=== PATIENT | female | born 1970 | race Caucasian/White ===

== ENCOUNTER 2018-06-22 08:57 | Emergency (ER) | payer OTHER ==
--- NOTE | 2018-06-22 09:47 | ERPHSYRPT ---
- History of Present Illness Time Seen by Provider: 06/22/18 09:28 Source: patient, family Exam Limitations: no limitations Patient Subjective Stated Complaint: Patient stated pain in calf that moved to the groin. Patient then felt pain in entire leg. Patient then was sick to stomach and felt like passing out. Triage Nursing Assessment: Patient brought to ER per EMS via ambulance. Patient A+O X 3. Patient complains of pain to left leg calf area 2/10 pain. Patient also complains of pain in groin area 210 pain. Patient's left extremity noted to be cool. Pedal pulse positive. Physician History: 48 y/o white female presents with sudden onset of sharp, burning pain left inner calf that radiated and localized into left groin area. occurred this am. the calf pain resolved and pain in left groin remains but less intense. pt felt as though she was going to pass out. pt denies soa, denies cp and denies abd pain. pt has never had in the past. pt denies trauma and denies h/o clotting d/ o. pt is a smoker. pt currently on her menstrual period Method of Injury: other (no injury) Occurred: this morning Quality: burning, sharpness, other (now resolved) Severity of Pain-Max: moderate Severity of Pain-Current: mild Lower Extremities Pain: leg: left Modifying Factors: Improves With: other (resolved on its own with time) Associated Symptoms: dizzy, other (sweaty and nauseated) Allergies/Adverse Reactions: Penicillins Allergy (Mild, Verified 06/22/18 09:14) Home Medications: Nicotine 21 mg [Nicoderm CQ 21 MG] 21 mg TOP DAILY 06/22/18 [History] Hx Tetanus, Diphtheria Vaccination/Date Given: No Hx Influenza Vaccination/Date Given: No Hx Pneumococcal Vaccination/Date Given: No Immunizations Up to Date: Yes - Review of Systems Constitutional: Other (sweats) Eyes: No Symptoms, No Eye Pain Ears, Nose, & Throat: No Symptoms, No Ear Pain Respiratory: No Symptoms, No Cough, No Dyspnea, No Stridor, No Wheezing Cardiac: No Symptoms, No Chest Pain, No Syncope Abdominal/Gastrointestinal: Nausea, No Abdominal Pain, No Vomiting, No Diarrhea Genitourinary Symptoms: No Symptoms, No Dysuria, No Frequency, No Hematuria, No Incontinence Musculoskeletal: Other (left leg pain, left groin pain) Skin: No Symptoms Neurological: Dizziness, No Paralysis, No Sensory Changes, No Speech Changes Psychological: No Symptoms, No Alcohol Abuse, No Drug Abuse Endocrine: No Symptoms Hematologic/Lymphatic: No Symptoms, No Blood Clots, No Easy Bleeding, No Adenopathy Immunological/Allergic: No Symptoms All Other Systems: Reviewed and Negative - Past Medical History Pertinent Past Medical History: Yes Neurological History: No Pertinent History ENT History: No Pertinent History Cardiac History: No Pertinent History Respiratory History: No Pertinent History Endocrine Medical History: No Pertinent History Musculoskeletal History: No Pertinent History GI Medical History: No Pertinent History History: No Pertinent History Psycho-Social History: No Pertinent History Female Reproductive Disorders: No Pertinent History - Past Surgical History Past Surgical History: Yes Neuro Surgical History: No Pertinent History Cardiac: No Pertinent History Respiratory: No Pertinent History Gastrointestinal: No Pertinent History Genitourinary: No Pertinent History Musculoskeletal: No Pertinent History Female Surgical History: No Pertinent History 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 - Social History Smoking Status: Current every day smoker How long have you smoked: 30 years Exposure to second hand smoke: Yes Drug Use: none Patient Lives Alone: No - Female History Hx Last Menstrual Period: currently on Hx Now: No - Nursing Vital Signs Nursing Vital Signs: Initial Vital Signs Temperature 97.6 F 06/22/18 08:59 Blood Pressure 141/63 06/22/18 08:59 Pain Scale Pain Intensity 2 - Physical Exam General Appearance: no apparent distress, alert, anxiety Eyes, Ears, Nose, Throat Exam: normal ENT inspection, TMs normal Neck Exam: normal inspection, non-tender, supple, full range of motion Cardiovascular/Respiratory Exam: chest non-tender, normal breath sounds, regular rate/rhythm, heart sounds normal, no respiratory distress, No tachycardia, No irregularly irregular, No rhonchi, No accessory muscle use, No wheezing Gastrointestinal/Abdominal Exam: non-tender, soft, no organomegaly, no hernia, No guarding, No tenderness Back Exam: normal inspection, normal range of motion, No CVA tenderness, No vertebral tenderness Hips Exam: bilateral: non-tender, normal inspection, normal range of motion Legs Exam: bilateral leg: non-tender, normal inspection, normal range of motion , no evidence of injury Knees Exam: bilateral knee: non-tender, normal inspection, normal range of motion, no evidence of injury Ankle Exam: bilateral ankle: non-tender, normal inspection, normal range of motion, no evidence of injury Foot Exam: bilateral foot: non-tender, normal inspection, normal range of motion , no evidence of injury Neuro/Tendon Exam: normal sensation, normal motor functions, normal tendon functions, responds to pain, no evidence tendon injury, No motor deficit, No sensory deficit Mental Status Exam: alert, oriented x 3, cooperative Skin Exam: normal color, warm, dry SpO2 Interpretation: normal Oxygen Delivery: Room Air - Course Nursing assessment & vital signs reviewed: Yes EKG Interpreted by Me: RATE ([id number]), Sinus Rhythm, NORMAL AXIS, NORMAL INTERVALS, NORMAL QRS Ordered Tests: Active Orders 24 hr Category Date Time 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 06/22/18 09:49 Active EKG-ER Only STAT Care 06/22/18 09:48 Active VENOUS UNILAT/LIMITED EXTREMIT [US] Stat Exams 06/22/18 11:10 Taken CBC W DIFF Stat Lab 06/22/18 10:20 Completed CMP Stat Lab 06/22/18 10:20 Completed D-DIMER QUANTITATION Stat Lab 06/22/18 10:20 Completed UA W/RFX UR CULTURE Stat Lab 06/22/18 11:20 Received Lab/Rad Data: Laboratory Result Diagrams 06/22/18 10:20 06/22/18 10:20 Laboratory Results 06/22/18 06/22/18 06/22/18 Range/Units 10:20 10:20 10:20 WBC 10.3 (4.0-10.5) K/mm3 RBC 4.38 (4.1-5.4) M/mm3 Hgb 13.8 (12.0-16.0) gm/dl Hct 41.0 (35-47) % MCV 93.6 (78-100) fl MCH 31.5 (26-32) pg MCHC 33.7 (32-36) g/dl RDW 12.5 (11.5-14.0) % Plt Count 202 (150-450) K/mm3 MPV 10.9 H (6-9.5) fl Gran % 74.5 H (36.0-66.0) % Eos # (Auto) 0.08 (0-0.5) Absolute Lymphs (auto) 1.89 (1.0-4.6) Absolute Monos (auto) 0.61 (0.0-1.3) Lymphocytes % 18.4 L (24.0-44.0) % Monocytes % 5.9 (0.0-12.0) % Eosinophils % 0.8 (0.00-5.0) % Basophils % 0.4 (0.0-0.4) % Absolute Granulocytes 7.67 H (1.4-6.9) Basophils # 0.04 (0-0.4) D-Dimer 612 H* (215-500) ng/mL Sodium 139 (137-145) mmol/L Potassium 4.4 (3.5-5.1) mmol/L Chloride 105 (98-107) mmol/L Carbon Dioxide 26 (22-30) mmol/L Anion Gap 12.4 (5-15) MEQ/L BUN 12 (7-17) mg/dL Creatinine 0.68 (0.52-1.04) mg/dL Estimated GFR > 60.0 ML/MIN Glucose 97 (74-106) mg/dL Calcium 8.5 (8.4-10.2) mg/dL Total Bilirubin 0.80 (0.2-1.3) mg/dL AST 17 (14-36) U/L ALT 11 (0-35) U/L Alkaline Phosphatase 50 (38-126) U/L Serum Total Protein 6.8 (6.3-8.2) g/dL Albumin 4.1 (3.5-5.0) g/dL venous doppler u/s left lower ext results reported to me as negative - Progress Progress: improved Progress Note: 06/22/18 11:54 pt currently asymptomatic. d/w pt lab, ekg and u/s results. will discharge pt to home Counseled pt/family regarding: lab results, diagnosis, need for follow-up, rad results - Departure Time of Disposition: 11:55 Departure Disposition: Home Clinical Impression: Leg pain, left, Elevated d-dimer Condition: Stable Critical Care Time: No Additional Instructions: follow up with primary doctor for further management. stop smoking. take a daily aspirin.
[2018-06-22 10:29] LABS: BASOPHIL % 0.4 % (0.0-0.4); Basophil (Absolute #) 0.04 (0-0.4); Eosinophil % 0.8 % (0.00-5.0); Eosinophil (Absolute #) 0.08 (0-0.5); Granulocyte Absolute (ANC) 7.67 (1.4-6.9); Granulocytes % 74.5 % (36.0-66.0); Hemoglobin 13.8 gm/dl (12.0-16.0); Lymphocyte (Absolute #) 1.89 (1.0-4.6); Lymphocytes % 18.4 % (24.0-44.0); Mean Cell Volume 93.6 fl (78-100); Mean Corpuscular Hemoglobin 31.5 pg (26-32); Mean Corpuscular Hgb Concent. 33.7 g/dl (32-36); Mean Platelet Volume 10.9 fl (6-9.5); Monocyte (Absolute #) 0.61 (0.0-1.3); Monocytes % 5.9 % (0.0-12.0); Platelet Count 202 K/mm3 (150-450); Red Blood Count 4.38 M/mm3 (4.1-5.4); Red Cell Distribution Width 12.5 % (11.5-14.0); White Blood Count 10.3 K/mm3 (4.0-10.5)
[2018-06-22 11:00] LABS: ALBUMIN 4.1 g/dL (3.5-5.0); ALKALINE PHOSPHATASE 50 U/L (38-126); ANION GAP 12.4 MEQ/L (5-15); BLOOD UREA NITROGEN 12 mg/dL (7-17); CHLORIDE 105 mmol/L (98-107); Calcium 8.5 mg/dL (8.4-10.2); Carbon Dioxide 26 mmol/L (22-30); Creatinine 1 0.68 mg/dL (0.52-1.04); Glucose 97 mg/dL (74-106); Potassium 4.4 mmol/L (3.5-5.1); SGOT/AST 17 U/L (14-36); SGPT/ALT 11 U/L (0-35); SODIUM 139 mmol/L (137-145); Total Protein 6.8 g/dL (6.3-8.2)
[2018-06-22 11:28] VITALS: O2SAT 98
[2018-06-22 11:33] LABS: Appearance CLOUDY (CLEAR)
[2018-06-22 11:55] LABS: Bilirubin NEGATIVE (NEGATIVE); Blood 250 Ery/ul (0-5); Glucose NEGATIVE (NEGATIVE); Ketones SMALL (NEGATIVE); Leukocyte Esterase TRACE (NEGATIVE); Nitrite NEGATIVE (NEGATIVE); Protein,Urine Dip 100 (Negative); Urobilinogen NORMAL mg/dL (0-1)
[2018-06-22 11:58] LABS: Bacteria RARE /HPF (NEGATIVE); Epithelial Cells RARE /HPF (FEW); RBC >100 /HPF (0-2); WBC 0-2 /HPF (0-5)
[2018-06-22 12:06] VITALS: BP 118/70; PULSE 87
--- NOTE | 2018-06-22 12:28 | XRAY ---
Exam: Duplex Doppler venous ultrasound examination of the left lower extremity from 06/22/2018. Comparison: None. Indication: Left calf pain/tenderness and elevated d-dimer, patient denies swelling or injury. Technique: Multiple stringer scale images, color blood flow images, and Doppler tracings were obtained of the left lower extremity. Findings: Digital Pre Press Operator sections of the left common femoral vein, distal greater saphenous vein, profunda femoral vein, proximal, mid, and distal superficial femoral vein, popliteal vein, left posterior tibial-peroneal trunk, and distal posterior tibial veins were imaged. Normal transducer compression was seen within the greater saphenous vein, distal posterior tibial veins, and peroneal vein within the lower leg. Normal transducer compression, color blood flow, and Doppler signal augmentation were seen at all other insurance account representative segments of the deep veins of the left lower extremity. No echogenic clot was seen on the grayscale images. Impression: 1. No sonographic or Doppler evidence of deep venous thrombosis is seen within the left lower extremity.
== END 2018-06-22 12:16 | disposition home or self-care (01) ==
LOC: ED 08:57
DX: M79.605 Pain in left leg (principal); M25.50 Pain in unspecified joint; R79.1 Abnormal coagulation profile
CPT/HCPCS: 36415; 80053; 81000; 85025; 85379; 87086; 93005; 93041; 93971; 99284